=== PATIENT | female | born 1940 | race Caucasian/White ===

== ENCOUNTER → 2019-04-27 | Outpatient (CLI) | payer MEDICARE, OTHER ==
[~2019-04-27] MED LIST: CALPHO600; CIPR250 PO; Dyazide 37.5-21 EACH PO; Estradiol1 MG PO; K-Dur20 MEQ PO; LEVSOD125 PO; LEVSOD75; MECL25; MELO7.5; MELO7.5 PO; METO10 PO; NIFE30ER PO; Omeprazole20 M1 PO; PREG75 PO; PROM25 PO
[2019-04-28 13:36] LABS: Candida species (DNA Probe) Positive (NEGATIVE); G. vaginalis (DNA Probe) Negative (NEGATIVE); T. vaginalis (DNA Probe) Negative (NEGATIVE)
== END | disposition home or self-care (01) ==
LOC: LAB 16:01 → LAB SHORT 16:01
DX: R10.2 Pelvic and perineal pain (principal)
CPT/HCPCS: 87480; 87510; 87660